=== PATIENT | male | born 1950 | race Caucasian/White ===

== ENCOUNTER 2023-10-16 10:46 | Emergency (ER) | payer OTHER, SELFPAY ==
[2023-10-16 11:04] VITALS: BP 166/111
--- NOTE | 2023-10-16 13:06 | ED.MUSCINJ ---
HPI-Injury
General
Chief Complaint: Musculo-Skeletal Complaint
Source: patient
Exam Limitations: none
Time Seen by Provider: 10/16/23 12:57
History of Present Illness-Injury
Initial Injury comments:
73-year-old male presents complaining of severe neck pain right worse than the left. This started 2 days ago. He states his motion is severely limited he cannot turn in either direction. No associated fever headache chest pain or shortness of
breath. No radiation of pain down the arms. No other complaints at this time. He had a similar episode to his back several months ago which required admission to [facility].
Phy Exam
Physical Exam
Physical Exam:
General: Uncomfortable appearing male no acute respiratory distress
HEENT: Normocephalic atraumatic neck is supple
Heart: Regular rate and rhythm no murmurs
Lungs: Clear no wheeze no bruits
Ext: No cyanosis
MSK: tender to left paraspinous area of cervical spine. Decreased ROM in all directions of cervical spine
Neuro: Pacing throughout the room alert and oriented good strength and sensation to the upper and lower extremities
Injury Course
Orders/Labs/Results
Orders:
Orders
10/16/23 13:04
HYDROmorphone [Dilaudid] 0.5 mg IV NOW STA
Ketorolac [Toradol] 15 mg IV NOW STA
diazePAM [Valium Injection] 5 mg IV NOW STA
10/16/23 13:07
CR Cervical Spine 2 or 3 Vw Urgent
Comment:
Reason For Exam: neck pain
10/16/23 15:21
HYDROmorphone [Dilaudid] 0.5 mg IV NOW STA
MDM/Problems Addressed
Differential Diagnosis Includes:
Neck pain. Consider cervical strain versus degenerative disc disease. No arm pain or leg pain radiculopathy.
Patient tried Flexeril without relief. X-rays pending. Will order Toradol Valium Dilaudid as pain is severe.
*Critical Care Note
Total Time (30-74mins, 75-104mins- exclusive of procedures): Not Applicable
Update Note
Update Note:
X-ray cervical spine demonstrates degenerative changes without acute finding. Patient somewhat more comfortable after IV medication here. I suspect cervical strain. Recommend warm compresses muscle relaxers. He was given a short supply of pain
medicine
ED Attending Note
-
Portions of this chart may have been created with voice recognition software.� Occasional wrong word or��sound alike� substitutions may have occurred due to the inherent limitations of voice recognition software.
Discharge Plan
Departure
Patient Disposition: Home (Routine Discharge)
Date of Disposition: 10/16/23
Time of Disposition: 16:31
Patient with high blood pressure during this ER visit?: No
Discharge Problem:
Cervical strain
Instructions: Muscle and Bone Pain (DC)
Prescriptions:
New
methocarbamol 750 mg tablet
750 mg PO TID PRN (Reason: spasm) Qty: 10 0RF
oxycodone-acetaminophen [Percocet] 5-325 mg tablet
1 tab PO Q8H PRN (Reason: Pain) Qty: 10 0RF
Referrals:
Tyshawn Funk CRNP [Family Provider] -
Activity Restrictions/Additional Instructions:
Take medicine as directed. Continue with warm compress. Return if worse otherwise follow-up with your family doctor
Interventions
Interventions:
*Risk Screen - Suicide Last Done: 10/16/23 12:56
*General Assessment Last Done: 10/16/23 12:56
*Neglect/Abuse Screening Last Done: 10/16/23 12:56
ED- Fall Risk Assessment Last Done: 10/16/23 16:56
*ED COVID-19 Vaccine History Last Done: 10/16/23 12:56
*Nursing Disposition Last Done: 10/16/23 16:56
ED-Musculoskeletal Assessment Last Done: 10/16/23 12:56
Discharge Date and Time
Discharge Date/Time: 10/16/23 16:56
Print Language: GREEK
[2023-10-16] MEDS: TORADOL 15 MG IV (13:11)
[2023-10-16] MEDS: VALIUM INJECTION 5 MG IV (13:11)
[2023-10-16] MEDS: DILAUDID 0.5 MG IV ×2 (13:11→15:32)
[2023-10-16 13:36] VITALS: BP 129/95
[2023-10-16 15:34] VITALS: BP 130/98
[2023-10-16 16:55] VITALS: BP 133/99
== END 2023-10-16 16:56 | disposition home or self-care (01) ==
LOC: EMR 10:46
PROVIDERS: EMERGENCY PHYSICIAN Emergency Medicine; FAMILY PHYSICIAN Nurse Practitioner Family
DX: S16.1XXA Strain of muscle, fascia and tendon at neck level, initial encounter (principal); X58.XXXA Exposure to other specified factors, initial encounter
CPT/HCPCS: 99283; 96374; 96375; 96376; 72040